=== PATIENT | female | born 1955 | race Two or more races ===

== ENCOUNTER 2018-08-02 00:10 | Emergency (ER) | payer MEDICARE, MEDICAID ==
[~2018-08-02] VITALS: Ht 154.9 cm; Wt 113.4 kg
[~2018-08-02 00:10] MED LIST: ALBU1.25 NEB; ALBU2.5V5 NEB; BENZ-8 PO; BENZ100C PO; GUAI600T47 PO; LEVO500T8 PO; LORA10TA3 PO; METH4TAB2 PO; MOME13HF2 IH; PRED-220 PO; PROAIR HFA8.5 GM IH; SIME125C PO; VENTOLIN; [UNRECOGNIZED DRUG - REMARK] PO; symbicort
[2018-08-02] MEDS ORDERED: ALBUTEROL SULFATE 2.5 MG/3 ML NEBU. ONE (00:27)
[2018-08-02 00:36] LABS: BASO # 0.1 x10^3/uL (0.0-0.2); BASO % 1 % (0-3); EOS # 0.5 x10^3/uL (0.0-0.7); EOS % 7 % (0-3); HEMATOCRIT 44.4 % (36.0-47.0); HEMOGLOBIN 15.1 g/dL (12.0-15.5); LYMPH # 2.8 x10^3/uL (1.0-4.8); LYMPH % 38 % (24-48); MEAN CORPUSCULAR HEMOGLOBIN 31 pg (25-35); MEAN CORPUSCULAR HGB CONC 34 g/dL (31-37); MEAN CORPUSCULAR VOLUME 91 fL (79-100); MONO # 0.5 x10^3/uL (0.0-1.1); MONO % 6 % (0-9); NEUT # 3.5 x10^3uL (1.8-7.7); NEUT % 47 % (31-73); PLATELET COUNT 204 x10^3/uL (140-400); RED BLOOD COUNT 4.86 x10^6/uL (3.50-5.40); RED CELL DISTRIBUTION WIDTH 14.1 % (11.5-14.5); WHITE BLOOD COUNT 7.3 x10^3/uL (4.0-11.0)
[2018-08-02 00:44] LABS: CALCIUM 9.1 mg/dL (8.5-10.1); CREATININE 0.8 mg/dL (0.6-1.0); GFR 72.4; POTASSIUM 3.7 mmol/L (3.5-5.1)
[2018-08-02 00:51] LABS: ALBUMIN 4.1 g/dL (3.4-5.0); ALBUMIN/GLOBULIN RATIO 1.3 (1.0-1.7); TOTAL BILIRUBIN 0.4 mg/dL (0.2-1.0); TOTAL PROTEIN 7.2 g/dL (6.4-8.2)
[2018-08-02] MEDS ORDERED: ONDANSETRON PF 4 MG/2 ML VIAL. IV ONE (01:00)
[2018-08-02] MEDS ORDERED: ALBUTEROL SULFATE 2.5 MG/3 ML NEBU. CONT NEB ONE (01:00)
[2018-08-02] MEDS ORDERED: MORPHINE SULFATE 4 MG/ML VIAL. IV ONE (01:00)
[2018-08-02] MEDS ORDERED: methylPREDNISolone SOD SUCC PF 125 MG/2 ML VIAL. IV ONE (01:00)
[2018-08-02] MEDS ORDERED: IPRATROPIUM BROMIDE 0.5 MG/2.5 ML NEBU. NEB ONE (01:00)
--- NOTE | 2018-08-02 01:13 | PHYS DOC ---
Past Medical History Past Medical History: Asthma, COPD, Other Additional Past Medical Histor: THYROID STORM,GRAVES DISEASE TX'D W/RADIATION Past Surgical History: Other Additional Past Surgical Histo: MINISCUS TEAR Alcohol Use: None Drug Use: None Adult General Chief Complaint Chief Complaint: ASTHMA HPI HPI Patient is a 63-year-old female who presents with complaint of shortness of breath and wheezing that started around 6 PM today. Patient states that the last few days she has had symptoms of upper respiratory infection with productive cough. She states that tonight the symptoms had just gotten a lot worse and she states that she took a breathing treatment a while back but states that it did not do very much to help her symptoms. She states that symptoms are worsened with minimal exertion. She denies any chest pain. She does indicate that she has felt like she might have been running a fever over the last couple of days and has had some chills. Review of Systems Review of Systems Constitutional: Positive subjective fever and chills [] Respiratory: Positive cough, wheezing and shortness of breath [] Cardiovascular: No additional information not addressed in HPI [] Musculoskeletal: Positive back pain[] Integument: Denies rash or skin lesions [] All other systems were reviewed and found to be within normal limits, except as documented in this note. Current Medications Current Medications Current Medications Medications (Trade) Dose Ordered Sig/Sly Start Time Stop Time Status Last Admin Dose Admin Albuterol Sulfate (Ventolin Neb Soln) 2.5 mg STK-MED ONCE 08/02/18 00:27 08/02/18 00:28 DC Albuterol/ Ipratropium (Duoneb) 3 ml 1X ONCE 08/02/18 03:15 08/02/18 03:16 Ipratropium [place] (Atrovent) 0.5 mg 1X ONCE 08/02/18 01:00 08/02/18 01:01 DC 08/02/18 00:36 0.5 MG Ketorolac Tromethamine (Toradol 30mg Vial) 30 mg 1X ONCE 08/02/18 03:00 08/02/18 03:01 08/02/18 02:42 30 MG Methylprednisolone Sodium Succinate (SOLU-Medrol 125MG VIAL) 125 mg 1X ONCE 08/02/18 01:00 08/02/18 01:01 DC 08/02/18 00:34 125 MG Morphine Sulfate (Morphine Sulfate) 4 mg 1X ONCE 08/02/18 01:00 08/02/18 01:01 DC 08/02/18 01:02 4 MG Ondansetron HCl (Zofran) 4 mg 1X ONCE 08/02/18 01:00 08/02/18 01:01 DC 08/02/18 01:03 4 MG Orphenadrine Citrate (Norflex) 60 mg 1X ONCE 08/02/18 03:00 08/02/18 03:01 08/02/18 02:42 60 MG Allergies Allergies Allergies Coded Allergies Type Severity Reaction Last Updated Verified fluticasone Allergy Severe rash 08/30/15 No salmeterol Allergy Severe rash 08/30/15 No codeine Adverse Reaction Mild N/V 08/30/15 Yes Physical Exam Physical Exam Constitutional: Well developed, well nourished, no acute distress, non-toxic appearance. [] HENT: Normocephalic, atraumatic, bilateral external ears normal, oropharynx moist, no oral exudates, nose normal. [] Eyes: PERRLA, EOMI, conjunctiva normal, no discharge. [] Neck: Normal range of motion, no tenderness, supple, no stridor. [] Cardiovascular:Heart rate regular rhythm [] Lungs & Thorax: Breath sounds are diminished bilaterally with inspiratory and expiratory wheezes noted [] Abdomen: Bowel sounds normal, soft, no tenderness. [] Skin: Warm, dry, no erythema, no rash. [] Extremities: No tenderness, no cyanosis, no clubbing, ROM intact, no edema. [] Neurologic: Alert and oriented X 3, normal motor function, normal sensory function, no focal deficits noted. [] Current Patient Data Vital Signs Vital Signs Date Time Temp Pulse Resp B/P (MAP) Pulse Ox O2 Delivery O2 Flow Rate FiO2 08/02/18 00:35 96 Room Air 08/02/18 00:15 97.9 94 28 132/106 (115) 97.9 Lab Values Laboratory Tests Test 08/02/18 00:23 White Blood Count 7.3 x10^3/uL (4.0-11.0) Red Blood Count 4.86 x10^6/uL (3.50-5.40) Hemoglobin 15.1 g/dL (12.0-15.5) Hematocrit 44.4 % (36.0-47.0) Mean Corpuscular Volume 91 fL (79-100) Mean Corpuscular Hemoglobin 31 pg (25-35) Mean Corpuscular Hemoglobin Concent 34 g/dL (31-37) Red Cell Distribution Width 14.1 % (11.5-14.5) Platelet Count 204 x10^3/uL (140-400) Neutrophils (%) (Auto) 47 % (31-73) Lymphocytes (%) (Auto) 38 % (24-48) Monocytes (%) (Auto) 6 % (0-9) Eosinophils (%) (Auto) 7 % (0-3) H Basophils (%) (Auto) 1 % (0-3) Neutrophils # (Auto) 3.5 x10^3uL (1.8-7.7) Lymphocytes # (Auto) 2.8 x10^3/uL (1.0-4.8) Monocytes # (Auto) 0.5 x10^3/uL (0.0-1.1) Eosinophils # (Auto) 0.5 x10^3/uL (0.0-0.7) Basophils # (Auto) 0.1 x10^3/uL (0.0-0.2) Sodium Level 142 mmol/L (136-145) Potassium Level 3.7 mmol/L (3.5-5.1) Chloride Level 105 mmol/L (98-107) Carbon Dioxide Level 26 mmol/L (21-32) Anion Gap 11 (6-14) Blood Urea Nitrogen 16 mg/dL (7-20) Creatinine 0.8 mg/dL (0.6-1.0) Estimated GFR (Cockcroft-Gault) 72.4 BUN/Creatinine Ratio 20 (6-20) Glucose Level 99 mg/dL (70-99) Calcium Level 9.1 mg/dL (8.5-10.1) Total Bilirubin 0.4 mg/dL (0.2-1.0) Aspartate Amino Transferase (AST) 25 U/L (15-37) Alanine Aminotransferase (ALT) 43 U/L (14-59) Alkaline Phosphatase 151 U/L (46-116) H Total Protein 7.2 g/dL (6.4-8.2) Albumin 4.1 g/dL (3.4-5.0) Albumin/Globulin Ratio 1.3 (1.0-1.7) Laboratory Tests 08/02/18 00:23 Laboratory Tests 08/02/18 00:23 EKG EKG [] Radiology/Procedures Radiology/Procedures [] Course & Med Decision Making Course & Med Decision Making Pertinent Labs and Imaging studies reviewed. (See chart for details) [] Dragon Disclaimer Dragon Disclaimer This electronic medical record was generated, in whole or in part, using a voice recognition dictation system. Departure Departure Impression: Primary Impression: Asthma exacerbation Disposition: HOME, SELF-CARE Condition: STABLE Referrals: UNKNOWN PCP NAME (PCP) Patient Instructions: Asthma, Adult Scripts Methylprednisolone (MEDROL) 4 Mg Tab.ds.pk 1 PKG PO UD, #1 PKG Prov: DARIANA PENA Jr. DO 08/02/18 Azithromycin (ZITHROMAX) 250 Mg Tablet 1 PKG PO UD, #6 TAB Prov: DARIANA PENA Jr. DO 08/02/18 Problem Qualifiers Primary Impression: Asthma exacerbation Asthma severity: unspecified severity Asthma persistence: unspecified Qualified Codes: J45.901 - Unspecified asthma with (acute) exacerbation DARIANA PENA Jr. DO Aug 02, 2018 01:13
[2018-08-02] MEDS ORDERED: ORPHENADRINE CITRATE 60 MG/2 ML VIAL. IV ONE (03:00)
[2018-08-02] MEDS ORDERED: KETOROLAC 30 MG/ML VIAL. IV ONE (03:00)
[2018-08-02] MEDS ORDERED: AZIT250T PO (03:00)
[2018-08-02] MEDS ORDERED: METH4TAB2 PO (03:00)
[2018-08-02] MEDS ORDERED: IPRATRPIUM/ALBUTEROL 0.5/2.5MG 3 ML NEBU. NEB ONE (03:15)
[2018-08-02] MEDS ORDERED: ALBU2.5V5 NEB (03:42)
[2018-08-02 03:45] VITALS: BP 122/62
[2018-08-02] MEDS ORDERED: ORPH100T PO (05:56)
--- NOTE | 2018-08-02 07:46 | RAD ---
Examination: CHEST PA LATERAL History: soa;chest pain Comparison/Correlation: 02/02/2018 AP view of the chest Findings: PA and lateral views of chest were obtained. Heart size and pulmonary vasculature are normal. No infiltrate or pleural effusion. Calcified granulomas are present. No pneumothorax. Bony structures are unremarkable for the patient's age. Impression: No active disease. Electronically signed by: Fred Clark MD (08/02/2018 7:42 AM) [facility]
== END 2018-08-02 04:05 | disposition home or self-care (01) ==
LOC: ER 00:10
DX: J45.901 Unspecified asthma with (acute) exacerbation (principal); J44.9 Chronic obstructive pulmonary disease, unspecified; Z88.5 Allergy status to narcotic agent; Z88.8 Allergy status to other drugs, medicaments and biological substances
CPT/HCPCS: 36415; 71046; 80053; 85025; 94644; 96374; 96375; 99285; J1885; J2270; J2360; J2405; J2930; J7613; J7620; J7644; 94640

== ENCOUNTER 2019-01-06 23:22 | Inpatient (IN) | payer MEDICARE, MEDICAID ==
[~2019-01-06] VITALS: Ht 167.6 cm; Wt 127.7 kg
[~2019-01-06 23:22] MED LIST changes: +ALBU2.5V8 IH; +AZIT250T PO; +ORPH100T PO; -PROAIR HFA8.5 GM IH
[2019-01-06] MEDS ORDERED: IPRATRPIUM/ALBUTEROL 0.5/2.5MG 3 ML NEBU. NEB ONE (23:45)
[2019-01-06] MEDS ORDERED: methylPREDNISolone SOD SUCC PF 125 MG/2 ML VIAL. IV ONE (23:45)
[2019-01-07 00:07] LABS: BASE EXCESS ABG -2 mmol/L (-3-3); HCO3 ABG 22 mmol/L (21-28); PCO2 ABG 35 mmHg (35-46); PO2 ABG 106 mmHg (65-108); SAT O2 ABG 98 % (92-99)
[2019-01-07 00:08] LABS: FIO2 ABG 30
[2019-01-07 00:14] LABS: BASO # 0.1 x10^3/uL (0.0-0.2); BASO % 1 % (0-3); EOS # 0.4 x10^3/uL (0.0-0.7); EOS % 5 % (0-3); HEMATOCRIT 42.4 % (36.0-47.0); HEMOGLOBIN 14.2 g/dL (12.0-15.5); LYMPH # 3.3 x10^3/uL (1.0-4.8); LYMPH % 46 % (24-48); MEAN CORPUSCULAR HEMOGLOBIN 31 pg (25-35); MEAN CORPUSCULAR HGB CONC 33 g/dL (31-37); MEAN CORPUSCULAR VOLUME 93 fL (79-100); MONO # 0.5 x10^3/uL (0.0-1.1); MONO % 7 % (0-9); NEUT # 2.9 x10^3uL (1.8-7.7); NEUT % 41 % (31-73); PLATELET COUNT 189 x10^3/uL (140-400); RED BLOOD COUNT 4.54 x10^6/uL (3.50-5.40); RED CELL DISTRIBUTION WIDTH 13.3 % (11.5-14.5)
[2019-01-07] MEDS ORDERED: ALBUTEROL SULFATE 2.5 MG/3 ML NEBU. CONT NEB ONE (00:15)
--- NOTE | 2019-01-07 00:23 | PHYS DOC ---
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 Patient reports chest tightness and wheezing. She states she was unable to find her albuterol inhaler and [place] and does not have her nebulizer with her. Denies fever, chills, nausea vomiting or sweats. Reports nasal congestion, rhinorrhea, and other allergy laded asthma symptoms. Patient tachypnea, with labored breathing and audible wheezes on ED arrival. O2 saturation is 96%. Patient is able to speak in complete sentences. Eyes history of CAD, valvular heart disease, arrhythmia, congestive heart failure. No history of DVT or PE. She was nonsmoker. Denies other acute symptoms or complaints.[] Review of Systems Review of Systems Review of systems as per history of present illness.] All other systems were reviewed and found to be within normal limits, except as documented in this note. Current Medications Current Medications Current Medications Medications (Trade) Dose Ordered Sig/Sly Start Time Stop Time Status Last Admin Dose Admin Albuterol Sulfate (Ventolin Neb Soln) 10 mg 1X ONCE 01/07/19 00:15 01/07/19 00:16 DC 01/07/19 00:12 10 MG Albuterol/ Ipratropium (Duoneb) 3 ml 1X ONCE 01/06/19 23:45 01/06/19 23:46 DC 01/06/19 23:52 3 ML Methylprednisolone Sodium Succinate (SOLU-Medrol 125MG VIAL) 125 mg 1X ONCE 01/06/19 23:45 01/06/19 23:46 DC Allergies Allergies Allergies Coded Allergies Type Severity Reaction Last Updated Verified fluticasone Allergy Severe rash 08/30/15 No salmeterol Allergy Severe rash 08/30/15 No codeine Adverse Reaction Mild N/V 08/30/15 Yes Physical Exam Physical Exam Constitutional: Well developed, well nourished, no acute distress, non-toxic appearance. [] HENT: Normocephalic, atraumatic, bilateral external ears normal, oropharynx moist, no oral exudates, nose normal. [] Eyes: PERRLA, EOMI, conjunctiva normal, no discharge. [] Neck: Normal range of motion, no tenderness, supple, no stridor. [] Cardiovascular:Heart rate regular rhythm, no murmur, peripheral edema [] Lungs & Thorax: Respirations labored, tachypnea, missed breath sounds bilaterally, audible wheezes, speaks in complete sentences.[] Abdomen: Bowel sounds normal, soft, no tenderness, no masses, no pulsatile masses. [] Skin: Warm, dry, no erythema, no rash. [] Back: No tenderness, no CVA tenderness. [] Extremities: No tenderness, no cyanosis, no clubbing, ROM intact, no edema. [] Neurologic: Alert and oriented X 3, normal motor function, normal sensory function, no focal deficits noted. [] Psychologic: Affect, anxious.. [] Current Patient Data Vital Signs Vital Signs Date Time Temp Pulse Resp B/P (MAP) Pulse Ox O2 Delivery O2 Flow Rate FiO2 01/07/19 00:13 96 Nasal Cannula 2.5 01/06/19 23:30 98.6 129 24 158/73 (101) 98.6 Lab Values Laboratory Tests Test 01/06/19 23:38 O2 Saturation 98 % (92-99) Arterial Blood pH 7.41 (7.35-7.45) Arterial Blood pCO2 at Patient Temp 35 mmHg (35-46) Arterial Blood pO2 at Patient Temp 106 mmHg (65-108) Arterial Blood HCO3 22 mmol/L (21-28) Arterial Blood Base Excess -2 mmol/L (-3-3) FiO2 30 EKG EKG [EKG: Reviewed] Radiology/Procedures Radiology/Procedures [Chest x-ray: No acute cardiopulmonary disease on preliminary ED review] Course & Med Decision Making Course & Med Decision Making Pertinent Labs and Imaging studies reviewed. (See chart for details) Moderate to severe persisten asthma exacerbation., Steroids, hard long breathing treatment given. Will admit to hospitalist service with anticipated pulmonology consult in a.m.] Cherry Disclaimer Dragon Disclaimer This electronic medical record was generated, in whole or in part, using a voice recognition dictation system. Departure Departure Impression: Primary Impression: Asthma exacerbation Disposition: ADMITTED INPATIENT Admitting Physician: Other Condition: IMPROVED (Dr. Luke) Referrals: UNKNOWN PCP NAME (PCP) APRYL GAMBLE DO Jan 07, 2019 00:23
[2019-01-07 00:26] LABS: CALCIUM 9.4 mg/dL (8.5-10.1); CREATININE 0.9 mg/dL (0.6-1.0); GFR 63.2; POTASSIUM 4.1 mmol/L (3.5-5.1)
[2019-01-07] MEDS ORDERED: ALBUTEROL SULFATE 2.5 MG/3 ML NEBU. NEB PRN ×2 (00:30→11:15)
[2019-01-07] MEDS ORDERED: ONDANSETRON PF 4 MG/2 ML VIAL. IV PRN (00:30)
[2019-01-07 00:32] LABS: ALBUMIN 3.6 g/dL (3.4-5.0); ALBUMIN/GLOBULIN RATIO 1.2 (1.0-1.7); TOTAL BILIRUBIN 0.3 mg/dL (0.2-1.0); TOTAL PROTEIN 6.6 g/dL (6.4-8.2)
[2019-01-07 03:56] VITALS: BP 109/65
[2019-01-07] MEDS ORDERED: methylPREDNISolone SOD SUCC PF 125 MG/2 ML VIAL. IV SCH (06:00)
[2019-01-07 07:00] VITALS: BP 116/74
[2019-01-07] MEDS ORDERED: IPRATRPIUM/ALBUTEROL 0.5/2.5MG 3 ML NEBU. NEB SCH (08:00)
--- NOTE | 2019-01-07 08:37 | RAD ---
CHEST AP ONLY Clinical History: SHORT OF AIR. Technique: AP view of the chest was obtained at 01/06/2019 11:38 PM. Comparison: August 02, 2018. Findings: The cardiomediastinal silhouette is normal. The pulmonary vasculature is normal. The lungs and pleural margins are clear. Impression: No evidence of an acute cardiopulmonary process. Electronically signed by: Jordan Rothman III, MD (01/07/2019 8:34 AM) [facility]
[2019-01-07] MEDS ORDERED: ENOXAPARIN 40 MG/0.4 ML SYRINGE. SQ SCH ×2 (09:00→10:00)
--- NOTE | 2019-01-07 09:05 | PDOC ---
Provider Note Provider Note [id number] acute resp fail asthma ae abnl cxr see orders ANJELICA BEAULIEU MD Jan 07, 2019 09:05
[2019-01-07] MEDS ORDERED: PANTOPRAZOLE 40 MG TABLET.DR. PO ONE (09:15)
--- NOTE | 2019-01-07 09:21 | PDOC1 ---
History and Physical Date of Admission Date of Admission DATE: 01/07/19 TIME: 09:20 Identification/Chief Complaint Chief Complaint 63 year old AA female with history of asthma to er presents with shortness of breath, starting earlier today. Patient reports chest tightness and wheezing. states she was unable to find her albuterol inhaler and is currently [place] and does not have her nebulizer with her. Denies fever, chills, nausea vomiting or sweats. Reports nasal congestion, rhinorrhea, and other allergy laded asthma symptoms. Patient noted tachypnea, with labored breathing and audible wheezes on ED arrival. O2 saturation is 96%. Patient is able to speak in complete sentences. denies history of CAD, valvular heart disease, arrhythmia, congestive heart failure. No history of DVT or PE. She was nonsmoker She has history of previous severe asthma exacerbation requiring admission to the hospital, though never to the ICU or requiring BiPAP or intubation. She is a lifetime nonsmoker but states she also has diagnosis of COPD. Her PCP is at [facility].DR JUNIOR PEREZ, PULMONARY MED Past Medical History Past Medical History Past Medical History Past Medical History Past Medical History: Asthma, COPD, Other Additional Past Medical Histor: THYROID STORM,GRAVES DISEASE TX'D W/RADIATION Past Surgical History: Other Additional Past Surgical Histo: MINISCUS TEAR Alcohol Use: None Drug Use: None FAMILY HX OBESITY Pulmonary: Asthma, Bronchitis, COPD Musculoskeletal: Osteoarthritis ENT: Sincusitis, Allergic Rhinitis Endocrine: Other Past Surgical History Past Surgical History: No pertinent history Family History Family History: High Cholestrol Social History Smoke: No ALCOHOL: none Drugs: None Current Problem List Problem List Problems Medical Problems: (1) Asthma exacerbation Status: Acute Current Medications Current Medications Current Medications Albuterol/ Ipratropium (Duoneb) 3 ml 1X ONCE NEB Last administered on at 23:52; Start 01/06/19 at 23:45; Stop 01/06/19 at 23:46; Status DC Methylprednisolone Sodium Succinate (SOLU-Medrol 125MG VIAL) 125 mg 1X ONCE IV Last administered on 01/07/19at 00:21; Start 01/06/19 at 23:45; Stop 01/06/19 at 23:46; Status DC Albuterol Sulfate (Ventolin Neb Soln) 10 mg 1X ONCE CONT NEB Last administered on 01/07/19at 00:12; Start 01/07/19 at 00:15; Stop 01/07/19 at 00:16 ; Status DC Ondansetron HCl (Zofran) 4 mg PRN Q8HRS PRN IV NAUSEA/VOMITING; Start 01/07/19 at 00:30; Stop 01/08/19 at 00:29 Albuterol/ Ipratropium (Duoneb) 3 ml RTQID NEB Last administered on 01/07/19at 06:29; Start 01/07/19 at 08:00; Stop 01/08/19 at 07:59 Methylprednisolone Sodium Succinate (SOLU-Medrol 125MG VIAL) 62.5 mg Q6HRS IV Last administered on 01/07/19at 06:06; Start 01/07/19 at 06:00; Stop 01/07/19 at 08:58; Status DC Albuterol Sulfate (Ventolin Neb Soln) 2.5 mg PRN Q4HRS PRN NEB SOA; Start 01/07 at 00:30 Methylprednisolone Sodium Succinate (SOLU-Medrol 40MG VIAL) 40 mg Q8HRS IV ; Start 01/07/19 at 14:00 Pantoprazole Sodium (Protonix) 40 mg DAILYAC PO ; Start 01/08/19 at 07:30 Pantoprazole Sodium (Protonix) 40 mg 1X ONCE PO ; Start 01/07/19 at 09:15; Stop 01/07/19 at 09:16; Status DC Enoxaparin Sodium (Lovenox 40mg Syringe) 40 mg Q24H SQ ; Start 01/07/19 at 09:00 ; Status Cancel Enoxaparin Sodium (Lovenox 40mg Syringe) 40 mg BID SQ ; Start 01/07/19 at 09:00 Active Scripts Active Orphenadrine Citrate 100 Mg Tablet.er 1 Tab PO BID PRN Albuterol Sulfate Neb Soln (Albuterol Sulfate) 2.5 Mg/3 Ml Vial.neb 1 Vial NEB PRN Q4HRS PRN Medrol (Methylprednisolone) 4 Mg Tab.ds.pk 1 Pkg PO UD Zithromax (Azithromycin) 250 Mg Tablet 1 Pkg PO UD Medrol (Methylprednisolone) 4 Mg Tab.ds.pk 1 Pkg PO UD Reported [unknown steroid ] PO BID Gas-X (Simethicone) 125 Mg Capsule 125 Mg PO PRN BFRMEALHC PRN Loratadine 10 Mg Tablet 1 Tab PO DAILY Benzonatate 100 Mg Capsule 100 Mg PO TID PRN [Ventolin] Dulera 100 Mcg/5 Mcg Inhaler (Mometasone/Formoterol) 13 Gm Hfa.aer.ad 2 Puff IH BID Proair Hfa Inhaler (Albuterol Sulfate) 8.5 Gm Hfa.aer.ad 2 Puff IH PRN Q2HR PRN Albuterol Sulfate Neb Soln (Albuterol Sulfate) 1.25 Mg/3 Ml Vial.neb 1 Vial NEB Q4HRS Allergies Allergies: Coded Allergies: fluticasone (Verified Allergy, Severe, rash, 01/07/19) salmeterol (Verified Allergy, Severe, rash, 01/07/19) codeine (Verified Adverse Reaction, Mild, N/V, 08/30/15) ROS Review of System Review of Systems Review of Systems Constitutional: Denies fever or chills. [] Eyes: Denies change in visual acuity. [] HENT: Denies nasal congestion or sore throat. [] Respiratory: Reports shortness of breath. [] Cardiovascular: Denies chest pain or edema. [] GI: Denies abdominal pain, nausea, vomiting, bloody stools or diarrhea. [] : Denies dysuria. [] Musculoskeletal: Denies back pain or joint pain. [] Integument: Denies rash. [] Neurologic: Denies headache, focal weakness or sensory changes. [] Psychiatric: Denies depression or anxiety. [] 14 pt ros otherwise neg HEENT: YES: Sneezing ALLERGY AND IMMUNOLOGY: YES: Nasal Congestion, Post Nasal Drip Hematological and Lymphatic: No: Bleeding Problems, Blood Clots, Blood Transfusions, Brusing, Night Sweats, Pallor, Swollen Lymph Nodes, Other Gastrointestinal: No Nausea, No Vomiting, No Abdominal Pain, No Diarrhea, No Constipation, No Melena, No Hematochezia, No Other Neurological: No Behavorial Changes, No Bowel/Bladder ControlChng, No Confusion , No Dizziness, No Gait Disturbance, No Headaches, No Impaired Coord/balance, No Memory Loss, No Numbness/Tingling, No Seizures, No Speech Problems, No Tremors, No Visual Changes, No Weakness, No Other Physical Exam Physical Exam Physical Exam Physical Exam Constitutional: Well developed, well nourished, no acute distress, non-toxic appearance. [] HENT: Normocephalic, atraumatic, bilateral external ears normal, oropharynx moist, no oral exudates, nose normal. [] Eyes: PERRLA, EOMI, conjunctiva normal, no discharge. [] Neck: Normal range of motion, no tenderness, supple, no stridor. [] Cardiovascular:Heart rate regular rhythm, no murmur, peripheral edema [] Lungs & Thorax: Respirations mildly labored, tachypnea, missed breath sounds bilaterally, audible wheezes, speaks in complete sentences.[] Abdomen: Bowel sounds normal, soft, no tenderness, no masses, no pulsatile masses. [] Skin: Warm, dry, no erythema, no rash. [] Back: No tenderness, no CVA tenderness. [] Extremities: No tenderness, no cyanosis, no clubbing, ROM intact, no edema. [] Neurologic: Alert and oriented X 3, normal motor function, normal sensory function, no focal deficits noted. [] Psychologic: Affect, anxious.. [] General: Cooperative, mild distress Heart: S1S2 Abdomen: Normal bowel sounds, Soft Vitals Vitals Vital Signs Date Time Temp Pulse Resp B/P (MAP) Pulse Ox O2 Delivery O2 Flow Rate FiO2 01/07/19 07:00 98.2 87 16 116/74 (88) 97 Nasal Cannula 2.0 98.2 Labs Labs Laboratory Tests Test 01/06/19 23:38 01/07/19 00:05 O2 Saturation 98 % (92-99) Arterial Blood pH 7.41 (7.35-7.45) Arterial Blood pCO2 at Patient Temp 35 mmHg (35-46) Arterial Blood pO2 at Patient Temp 106 mmHg (65-108) Arterial Blood HCO3 22 mmol/L (21-28) Arterial Blood Base Excess -2 mmol/L (-3-3) FiO2 30 White Blood Count 7.0 x10^3/uL (4.0-11.0) Red Blood Count 4.54 x10^6/uL (3.50-5.40) Hemoglobin 14.2 g/dL (12.0-15.5) Hematocrit 42.4 % (36.0-47.0) Mean Corpuscular Volume 93 fL (79-100) Mean Corpuscular Hemoglobin 31 pg (25-35) Mean Corpuscular Hemoglobin Concent 33 g/dL (31-37) Red Cell Distribution Width 13.3 % (11.5-14.5) Platelet Count 189 x10^3/uL (140-400) Neutrophils (%) (Auto) 41 % (31-73) Lymphocytes (%) (Auto) 46 % (24-48) Monocytes (%) (Auto) 7 % (0-9) Eosinophils (%) (Auto) 5 % (0-3) Basophils (%) (Auto) 1 % (0-3) Neutrophils # (Auto) 2.9 x10^3uL (1.8-7.7) Lymphocytes # (Auto) 3.3 x10^3/uL (1.0-4.8) Monocytes # (Auto) 0.5 x10^3/uL (0.0-1.1) Eosinophils # (Auto) 0.4 x10^3/uL (0.0-0.7) Basophils # (Auto) 0.1 x10^3/uL (0.0-0.2) Sodium Level 140 mmol/L (136-145) Potassium Level 4.1 mmol/L (3.5-5.1) Chloride Level 106 mmol/L (98-107) Carbon Dioxide Level 24 mmol/L (21-32) Anion Gap 10 (6-14) Blood Urea Nitrogen 16 mg/dL (7-20) Creatinine 0.9 mg/dL (0.6-1.0) Estimated GFR (Cockcroft-Gault) 63.2 BUN/Creatinine Ratio 18 (6-20) Glucose Level 108 mg/dL (70-99) Calcium Level 9.4 mg/dL (8.5-10.1) Total Bilirubin 0.3 mg/dL (0.2-1.0) Aspartate Amino Transf (AST/SGOT) 32 U/L (15-37) Alanine Aminotransferase (ALT/SGPT) 49 U/L (14-59) Alkaline Phosphatase 139 U/L (46-116) Troponin I Quantitative < 0.017 ng/mL (0.000-0.055) UG-Dtg-V-Type Natriuretic Peptide 40 pg/mL (0-124) Total Protein 6.6 g/dL (6.4-8.2) Albumin 3.6 g/dL (3.4-5.0) Albumin/Globulin Ratio 1.2 (1.0-1.7) Laboratory Tests Test 01/06/19 23:38 01/07/19 00:05 O2 Saturation 98 % (92-99) Arterial Blood pH 7.41 (7.35-7.45) Arterial Blood pCO2 at Patient Temp 35 mmHg (35-46) Arterial Blood pO2 at Patient Temp 106 mmHg (65-108) Arterial Blood HCO3 22 mmol/L (21-28) Arterial Blood Base Excess -2 mmol/L (-3-3) FiO2 30 White Blood Count 7.0 x10^3/uL (4.0-11.0) Red Blood Count 4.54 x10^6/uL (3.50-5.40) Hemoglobin 14.2 g/dL (12.0-15.5) Hematocrit 42.4 % (36.0-47.0) Mean Corpuscular Volume 93 fL (79-100) Mean Corpuscular Hemoglobin 31 pg (25-35) Mean Corpuscular Hemoglobin Concent 33 g/dL (31-37) Red Cell Distribution Width 13.3 % (11.5-14.5) Platelet Count 189 x10^3/uL (140-400) Neutrophils (%) (Auto) 41 % (31-73) Lymphocytes (%) (Auto) 46 % (24-48) Monocytes (%) (Auto) 7 % (0-9) Eosinophils (%) (Auto) 5 % (0-3) Basophils (%) (Auto) 1 % (0-3) Neutrophils # (Auto) 2.9 x10^3uL (1.8-7.7) Lymphocytes # (Auto) 3.3 x10^3/uL (1.0-4.8) Monocytes # (Auto) 0.5 x10^3/uL (0.0-1.1) Eosinophils # (Auto) 0.4 x10^3/uL (0.0-0.7) Basophils # (Auto) 0.1 x10^3/uL (0.0-0.2) Sodium Level 140 mmol/L (136-145) Potassium Level 4.1 mmol/L (3.5-5.1) Chloride Level 106 mmol/L (98-107) Carbon Dioxide Level 24 mmol/L (21-32) Anion Gap 10 (6-14) Blood Urea Nitrogen 16 mg/dL (7-20) Creatinine 0.9 mg/dL (0.6-1.0) Estimated GFR (Cockcroft-Gault) 63.2 BUN/Creatinine Ratio 18 (6-20) Glucose Level 108 mg/dL (70-99) Calcium Level 9.4 mg/dL (8.5-10.1) Total Bilirubin 0.3 mg/dL (0.2-1.0) Aspartate Amino Transf (AST/SGOT) 32 U/L (15-37) Alanine Aminotransferase (ALT/SGPT) 49 U/L (14-59) Alkaline Phosphatase 139 U/L (46-116) Troponin I Quantitative < 0.017 ng/mL (0.000-0.055) PI-Frz-I-Type Natriuretic Peptide 40 pg/mL (0-124) Total Protein 6.6 g/dL (6.4-8.2) Albumin 3.6 g/dL (3.4-5.0) Albumin/Globulin Ratio 1.2 (1.0-1.7) Images Images CHEST AP ONLY Clinical History: SHORT OF AIR. Technique: AP view of the chest was obtained at 01/06/2019 11:38 PM. Comparison: August 02, 2018. Findings: The cardiomediastinal silhouette is normal. The pulmonary vasculature is normal. The lungs and pleural margins are clear. Impression: No evidence of an acute cardiopulmonary process. Electronically signed by: Kehinde Rothman III, MD (01/07/2019 8:34 AM) [facility] DICTATED and SIGNED BY: KEHINDE ROTHMAN III, MD DATE: 01/07/19 0834 VTE Prophylaxis Ordered VTE Prophylaxis Devices: Yes VTE Pharmacological Prophylaxi: Yes Assessment/Plan Assessment/Plan IMPRESSION 1. ACUTE RESPIRATORY FAILURE 2. Exacerbation of severe persistent asthma 3. morbid obesity, EXTREME 4. AYAKA 5. OBESITY, HYPOVENTILATION SYNDROME 6. SEASONAL ALLERGY SYMPTOMS plan nebs qid o2 support iv steroid taper dvt prophylaxis SINGULAIR 10 MG PO Q HS CLARITIN 10MG PO DAILY Discussed need for weight loss GI PROPHYLAXIS AT RISK FOR SUDDEN DUE TO SEVERE PERSISTENT ASTHMA ELSA TEMPLETON MD Jan 07, 2019 09:21
--- NOTE | 2019-01-07 09:55 | CONS ---
DATE OF CONSULTATION: 01/07/2019 I was asked to see this 63-year-old for acute respiratory failure, acute exacerbation of asthma. HISTORY OF PRESENT ILLNESS: She is a lifelong nonsmoker. She does have asthma, is under care of Dr. Gamboa in [facility]. She started to have increased shortness of breath, cough and wheezing yesterday. She did have chest tightness and some gastroesophageal reflux symptoms. She presented to the Emergency Room. Solu-Medrol and nebulizer treatment was given. She is on oxygen. Her shortness of breath is better. She does have cough with small amount of clear sputum. She denies chest pain or chest tightness now. She has gastroesophageal reflux symptoms. PAST MEDICAL HISTORY: 1. Asthma. 2. Graves' disease. 3. Status post radiation. 4. Obstructive sleep apnea-hypopnea syndrome. ALLERGIES: CODEINE, FLUTICASONE, SALMETEROL. MEDICATIONS: Currently, she is on Solu-Medrol 62.5 mg every 6, DuoNeb. SOCIAL HISTORY: Lifelong nonsmoker. FAMILY HISTORY: Her aunt has asthma. REVIEW OF SYSTEMS: As mentioned as above. She has obstructive sleep apnea-hypopnea syndrome. She is not able to tolerate her CPAP. Other systems otherwise negative. PHYSICAL EXAMINATION: GENERAL: This is an obese lady. VITAL SIGNS: Her O2 saturation on 2 liters of oxygen is 95%, respiratory rate 16, heart rate 87: Blood pressure 116/74, temperature 98.2. HEENT: Normocephalic, atraumatic. Pupils equal, round, reactive to light. There is shallow oropharynx. Nose is clear. NECK: There is no JVD, lymphadenopathy or thyromegaly. CARDIOVASCULAR: Regular rate and rhythm. PMI is nondisplaced. CHEST: On inspection, end-expiratory wheezing bilaterally. Good air movement. The percussion is within normal limits. ABDOMEN: Soft and obese. Bowel sounds are good. There is no mass. EXTREMITIES: There is no edema. LYMPHATICS: There is no lymphadenopathy. NEUROLOGIC: Alert and oriented. SKIN: Warm. LABORATORY DATA: I reviewed the following lab data: Sodium 140, potassium 4.1, chloride 106, CO2 of 24, glucose 108, BUN 16, creatinine 0.9. Troponin less than 0.01. BNP 40. ABG yesterday, pH 7.41, pCO2 of 35, pO2 of 106 on 30% FiO2. WBC 7, hemoglobin 14.2, platelets 189. Chest x-ray shows ?left hilar density/prominence, cannot rule out mass. IMPRESSION: 1. Acute respiratory failure secondary to acute exacerbation of asthma versus others. 2. Abnormal chest x-ray as mentioned as above. 3. Acute exacerbation of asthma. 4. Obstructive sleep apnea-hypopnea syndrome. 5. Obesity. 6. History of Graves' disease. 7. Gastroesophageal reflux disease. PLAN AND RECOMMENDATIONS: 1. Titrate FiO2 to keep O2 saturation 92%. 2. Continue bronchodilator. 3. Change Solu-Medrol to 40 mg IV every 8. 4. I will do a CT of the chest. 5. Lovenox for DVT prophylaxis. 6. Protonix for stress ulcer prophylaxis and gastroesophageal reflux disease. 7. Lose weight and exercise, when she is over her acute exacerbation of asthma. 8. I have discussed obstructive sleep apnea-hypopnea syndrome, the importance of treatment, if untreated, increased cardiovascular and [employer] morbidity or mortality. I have advised her to use CPAP during sleep. Thank you very much for allowing me to participate in care of this very nice lady. The findings and recommendations were discussed with the patient. She understood and agreed to proceed with the plan. I have answered all of her questions. ANJELICA BEAULIEU M.D. GUY MCKEON/quinn JOB#: [id number] / [id number] JULY
[2019-01-07] MEDS: ENOXAPARIN 40 MG/0.4 ML SYRINGE. SQ SCH ×2 (10:34→20:58)
[2019-01-07 11:00] VITALS: BP 132/56
[2019-01-07] MEDS ORDERED: SIMETHICONE 80 MG TAB.CHEW PO PRN (11:30)
--- NOTE | 2019-01-07 11:39 | RAD ---
CT of the chest without contrast: Clinical History: Left hilar prominence. Axial helical images of the chest were obtained without contrast. COMPARISON: February 03, 2018 There are a few peripheral linear opacities which are likely discoid atelectasis or scar. There is multiple small mediastinal lymph nodes however this appears significant improved. Impression: 1. Minimal mediastinal lymphadenopathy is likely reactive and appears significantly improved. 2. No acute findings. PQRS Compliance Statement: One or more of the following individualized dose reduction techniques were utilized for this examination: 1. Automated exposure control 2. Adjustment of the mA and/or kV according to patient size 3. Use of iterative reconstruction technique Electronically signed by: Jordan Rothman III, MD (01/07/2019 11:36 AM) [id number]
[2019-01-07] MEDS: BUDESONIDE 0.5 MG/2 ML NEBU. NEB SCH ×2 (11:50→20:18)
[2019-01-07] MEDS: ALBUTEROL SULFATE 2.5 MG/3 ML NEBU. NEB SCH ×3 (12:00→20:21)
[2019-01-07] MEDS: CETIRIZINE HCL 10 MG TABLET. PO SCH (13:35)
[2019-01-07] MEDS: methylPREDNISolone SOD SUCC PF 40 MG/ML VIAL. IV SCH ×2 (13:36→20:59)
[2019-01-07 15:00] VITALS: BP 109/54
[2019-01-07] MEDS: BENZONATATE 100 MG CAPSULE. PO PRN ×2 (15:38→23:35)
[2019-01-07] MEDS: SIMETHICONE 80 MG TAB.CHEW PO PRN ×2 (15:38→23:35)
[2019-01-07 19:40] VITALS: BP 134/63
[2019-01-07] MEDS ORDERED: MONTELUKAST SODIUM 10 MG TABLET. PO SCH (21:00)
[2019-01-07] MEDS ORDERED: ACETAMINOPHEN 325 MG TABLET. PO PRN (23:00)
[2019-01-07 23:08] VITALS: BP_SYST 130; BP_SYST 133; BP_DIAS 53; BP_DIAS 64
[2019-01-08 03:59] VITALS: BP 104/41
[2019-01-08] MEDS: ALBUTEROL SULFATE 2.5 MG/3 ML NEBU. NEB SCH ×5 (04:00→15:58)
[2019-01-08] MEDS: methylPREDNISolone SOD SUCC PF 40 MG/ML VIAL. IV SCH ×2 (06:07→13:33)
[2019-01-08 06:55] VITALS: BP 110/54
[2019-01-08] MEDS ORDERED: PANTOPRAZOLE 40 MG TABLET.DR. PO SCH (07:30)
[2019-01-08] MEDS: BUDESONIDE 0.5 MG/2 ML NEBU. NEB SCH (07:33)
[2019-01-08 08:07] LABS: BASO % 0 % (0-3); EOS % 0 % (0-3); HEMOGLOBIN 13.8 g/dL (12.0-15.5); LYMPH # 1.3 x10^3/uL (1.0-4.8); LYMPH % 12 % (24-48); MEAN CORPUSCULAR HEMOGLOBIN 31 pg (25-35); MEAN CORPUSCULAR HGB CONC 33 g/dL (31-37); MEAN CORPUSCULAR VOLUME 95 fL (79-100); MONO # 0.5 x10^3/uL (0.0-1.1); MONO % 4 % (0-9); NEUT # 9.4 x10^3uL (1.8-7.7); NEUT % 84 % (31-73); PLATELET COUNT 185 x10^3/uL (140-400); RED BLOOD COUNT 4.42 x10^6/uL (3.50-5.40); RED CELL DISTRIBUTION WIDTH 13.8 % (11.5-14.5); WHITE BLOOD COUNT 11.1 x10^3/uL (4.0-11.0)
[2019-01-08 08:38] LABS: ALBUMIN 3.4 g/dL (3.4-5.0); CREATININE 0.8 mg/dL (0.6-1.0); GFR 72.4; POTASSIUM 4.3 mmol/L (3.5-5.1); TOTAL BILIRUBIN 0.3 mg/dL (0.2-1.0); TOTAL PROTEIN 6.7 g/dL (6.4-8.2)
[2019-01-08] MEDS: CETIRIZINE HCL 10 MG TABLET. PO SCH (08:59)
[2019-01-08] MEDS: ENOXAPARIN 40 MG/0.4 ML SYRINGE. SQ SCH (09:00)
[2019-01-08 10:34] VITALS: BP 100/48
[2019-01-08] MEDS: SIMETHICONE 80 MG TAB.CHEW PO PRN (13:41)
[2019-01-08] MEDS ORDERED: ALBU2.5V8 IH (13:55)
[2019-01-08] MEDS ORDERED: AZIT250T PO (13:55)
[2019-01-08] MEDS ORDERED: PRED-220 PO (13:55)
[2019-01-08 14:17] VITALS: BP 120/57
--- NOTE | 2019-01-08 14:33 | PDOC ---
PULMONARY PROGRESS NOTES Subjective Pt. is resting comfortably on 2 liters N/C. She reports she feels well, and that her breathing is much better. She reports a non-productive cough, and SOA with exertion. She reports she doesn't want to go home with oxygen and is declining to do a 6 min walk to see if she qualifies for home oxygen. She reports she has not been compliant with her home CPAP but follows with at [facility] and plans to follow up with him to adjust her settings as she realizes the importance of the CPAP and treating her AYAKA. She denies chest pain, abdominal pain, or headache. Vitals Laboratory Tests Test 01/07/19 20:38 01/08/19 07:09 01/08/19 07:25 01/08/19 11:35 Glucose (Fingerstick) 206 mg/dL 125 mg/dL 186 mg/dL White Blood Count 11.1 x10^3/uL Red Blood Count 4.42 x10^6/uL Hemoglobin 13.8 g/dL Hematocrit 42.0 % Mean Corpuscular Volume 95 fL Mean Corpuscular Hemoglobin 31 pg Mean Corpuscular Hemoglobin Concent 33 g/dL Red Cell Distribution Width 13.8 % Platelet Count 185 x10^3/uL Neutrophils (%) (Auto) 84 % Lymphocytes (%) (Auto) 12 % Monocytes (%) (Auto) 4 % Eosinophils (%) (Auto) 0 % Basophils (%) (Auto) 0 % Neutrophils # (Auto) 9.4 x10^3uL Lymphocytes # (Auto) 1.3 x10^3/uL Monocytes # (Auto) 0.5 x10^3/uL Eosinophils # (Auto) 0.0 x10^3/uL Basophils # (Auto) 0.0 x10^3/uL Sodium Level 142 mmol/L Potassium Level 4.3 mmol/L Chloride Level 108 mmol/L Carbon Dioxide Level 25 mmol/L Anion Gap 9 Blood Urea Nitrogen 14 mg/dL Creatinine 0.8 mg/dL Estimated GFR (Cockcroft-Gault) 72.4 BUN/Creatinine Ratio 18 Glucose Level 142 mg/dL Calcium Level 9.0 mg/dL Total Bilirubin 0.3 mg/dL Aspartate Amino Transf (AST/SGOT) 15 U/L Alanine Aminotransferase (ALT/SGPT) 38 U/L Alkaline Phosphatase 109 U/L Total Protein 6.7 g/dL Albumin 3.4 g/dL Albumin/Globulin Ratio 1.0 Current Medications Medications (Trade) Dose Ordered Sig/Sly Route PRN Reason Start Time Stop Time Status Last Admin Dose Admin Albuterol/ Ipratropium (Duoneb) 3 ml 1X ONCE NEB 01/06/19 23:45 01/06/19 23:46 DC 01/06/19 23:52 Methylprednisolone Sodium Succinate (SOLU-Medrol 125MG VIAL) 125 mg 1X ONCE IV 01/06/19 23:45 01/06/19 23:46 DC 01/07/19 00:21 Albuterol Sulfate (Ventolin Neb Soln) 10 mg 1X ONCE CONT NEB 01/07/19 00:15 01/07/19 00:16 DC 01/07/19 00:12 Ondansetron HCl (Zofran) 4 mg PRN Q8HRS PRN IV NAUSEA/VOMITING 01/07/19 00:30 01/08/19 00:29 DC Albuterol/ Ipratropium (Duoneb) 3 ml RTQID NEB 01/07/19 08:00 01/07/19 11:20 DC 01/07/19 06:29 Methylprednisolone Sodium Succinate (SOLU-Medrol 125MG VIAL) 62.5 mg Q6HRS IV 01/07/19 06:00 01/07/19 08:58 DC 01/07/19 06:06 Albuterol Sulfate (Ventolin Neb Soln) 2.5 mg PRN Q4HRS PRN NEB SOA 01/07/19 00:30 01/07/19 11:18 DC Methylprednisolone Sodium Succinate (SOLU-Medrol 40MG VIAL) 40 mg Q8HRS IV 01/07/19 14:00 01/08/19 13:33 Pantoprazole Sodium (Protonix) 40 mg DAILYAC PO 01/08/19 07:30 01/08/19 07:44 Pantoprazole Sodium (Protonix) 40 mg 1X ONCE PO 01/07/19 09:15 01/07/19 09:16 DC 01/07/19 10:33 Enoxaparin Sodium (Lovenox 40mg Syringe) 40 mg Q24H SQ 01/07/19 09:00 Cancel Enoxaparin Sodium (Lovenox 40mg Syringe) 40 mg BID SQ 01/07/19 09:00 01/08/19 09:00 Enoxaparin Sodium (Lovenox 40mg Syringe) 40 mg Q24H SQ 01/07/19 10:00 UNV Albuterol Sulfate (Ventolin Neb Soln) 2.5 mg PRN Q4HRS PRN NEB WHEEZING 01/07/19 11:15 Albuterol Sulfate (Ventolin Neb Soln) 2.5 mg Q4HRS NEB 01/07/19 12:00 01/08/19 11:44 Benzonatate (Tessalon Perle) 100 mg PRN TID PRN PO COUGH 01/07/19 11:18 01/07/19 23:35 Cetirizine HCl (ZyrTEC) 10 mg DAILY PO 01/07/19 12:00 01/08/19 08:59 Budesonide (Pulmicort) 0.5 mg RTBID NEB 01/07/19 12:00 01/08/19 07:33 Simethicone (Gas-X) 80 mg PRN AFTMEALHC PRN PO GAS / BLOATING 01/07/19 11:30 01/07/19 14:23 DC Montelukast Sodium (Singulair) 10 mg QHS PO 01/07/19 21:00 01/07/19 20:58 Simethicone (Gas-X) 80 mg PRN Q3HRS PRN PO GAS / BLOATING 01/07/19 14:30 01/08/19 13:41 Acetaminophen (Tylenol) 650 mg PRN Q6HRS PRN PO PAIN 01/07/19 23:00 01/07/19 23:35 Vital Signs Date Time Temp Pulse Resp B/P (MAP) Pulse Ox O2 Delivery O2 Flow Rate FiO2 01/08/19 14:17 97.9 77 18 120/57 (78) 96 Nasal Cannula 2.0 97.9 Comments 12 point ROS was reviewed with pt. is negative except for positives in HPI. General: Alert, Oriented X4, No acute distress HEENT: Neck ROM Lungs: Clear, Wheezing (ex. in RUL) Cardiovascular: S1, S2 Abdomen: Soft, Non-tender Neuro Exam: Alert, Oriented, Normal Speech Extremities: No Edema Labs Laboratory Tests Test 01/07/19 20:38 01/08/19 07:09 01/08/19 07:25 01/08/19 11:35 Glucose (Fingerstick) 206 mg/dL 125 mg/dL 186 mg/dL White Blood Count 11.1 x10^3/uL Red Blood Count 4.42 x10^6/uL Hemoglobin 13.8 g/dL Hematocrit 42.0 % Mean Corpuscular Volume 95 fL Mean Corpuscular Hemoglobin 31 pg Mean Corpuscular Hemoglobin Concent 33 g/dL Red Cell Distribution Width 13.8 % Platelet Count 185 x10^3/uL Neutrophils (%) (Auto) 84 % Lymphocytes (%) (Auto) 12 % Monocytes (%) (Auto) 4 % Eosinophils (%) (Auto) 0 % Basophils (%) (Auto) 0 % Neutrophils # (Auto) 9.4 x10^3uL Lymphocytes # (Auto) 1.3 x10^3/uL Monocytes # (Auto) 0.5 x10^3/uL Eosinophils # (Auto) 0.0 x10^3/uL Basophils # (Auto) 0.0 x10^3/uL Sodium Level 142 mmol/L Potassium Level 4.3 mmol/L Chloride Level 108 mmol/L Carbon Dioxide Level 25 mmol/L Anion Gap 9 Blood Urea Nitrogen 14 mg/dL Creatinine 0.8 mg/dL Estimated GFR (Cockcroft-Gault) 72.4 BUN/Creatinine Ratio 18 Glucose Level 142 mg/dL Calcium Level 9.0 mg/dL Total Bilirubin 0.3 mg/dL Aspartate Amino Transf (AST/SGOT) 15 U/L Alanine Aminotransferase (ALT/SGPT) 38 U/L Alkaline Phosphatase 109 U/L Total Protein 6.7 g/dL Albumin 3.4 g/dL Albumin/Globulin Ratio 1.0 Current Medications Medications (Trade) Dose Ordered Sig/Sly Route PRN Reason Start Time Stop Time Status Last Admin Dose Admin Albuterol/ Ipratropium (Duoneb) 3 ml 1X ONCE NEB 01/06/19 23:45 01/06/19 23:46 DC 01/06/19 23:52 Methylprednisolone Sodium Succinate (SOLU-Medrol 125MG VIAL) 125 mg 1X ONCE IV 01/06/19 23:45 01/06/19 23:46 DC 01/07/19 00:21 Albuterol Sulfate (Ventolin Neb Soln) 10 mg 1X ONCE CONT NEB 01/07/19 00:15 01/07/19 00:16 DC 01/07/19 00:12 Ondansetron HCl (Zofran) 4 mg PRN Q8HRS PRN IV NAUSEA/VOMITING 01/07/19 00:30 01/08/19 00:29 DC Albuterol/ Ipratropium (Duoneb) 3 ml RTQID NEB 01/07/19 08:00 01/07/19 11:20 DC 01/07/19 06:29 Methylprednisolone Sodium Succinate (SOLU-Medrol 125MG VIAL) 62.5 mg Q6HRS IV 01/07/19 06:00 01/07/19 08:58 DC 01/07/19 06:06 Albuterol Sulfate (Ventolin Neb Soln) 2.5 mg PRN Q4HRS PRN NEB SOA 01/07/19 00:30 01/07/19 11:18 DC Methylprednisolone Sodium Succinate (SOLU-Medrol 40MG VIAL) 40 mg Q8HRS IV 01/07/19 14:00 01/08/19 13:33 Pantoprazole Sodium (Protonix) 40 mg DAILYAC PO 01/08/19 07:30 01/08/19 07:44 Pantoprazole Sodium (Protonix) 40 mg 1X ONCE PO 01/07/19 09:15 01/07/19 09:16 DC 01/07/19 10:33 Enoxaparin Sodium (Lovenox 40mg Syringe) 40 mg Q24H SQ 01/07/19 09:00 Cancel Enoxaparin Sodium (Lovenox 40mg Syringe) 40 mg BID SQ 01/07/19 09:00 01/08/19 09:00 Enoxaparin Sodium (Lovenox 40mg Syringe) 40 mg Q24H SQ 01/07/19 10:00 UNV Albuterol Sulfate (Ventolin Neb Soln) 2.5 mg PRN Q4HRS PRN NEB WHEEZING 01/07/19 11:15 Albuterol Sulfate (Ventolin Neb Soln) 2.5 mg Q4HRS NEB 01/07/19 12:00 01/08/19 11:44 Benzonatate (Tessalon Perle) 100 mg PRN TID PRN PO COUGH 01/07/19 11:18 01/07/19 23:35 Cetirizine HCl (ZyrTEC) 10 mg DAILY PO 01/07/19 12:00 01/08/19 08:59 Budesonide (Pulmicort) 0.5 mg RTBID NEB 01/07/19 12:00 01/08/19 07:33 Simethicone (Gas-X) 80 mg PRN AFTMEALHC PRN PO GAS / BLOATING 01/07/19 11:30 01/07/19 14:23 DC Montelukast Sodium (Singulair) 10 mg QHS PO 01/07/19 21:00 01/07/19 20:58 Simethicone (Gas-X) 80 mg PRN Q3HRS PRN PO GAS / BLOATING 01/07/19 14:30 01/08/19 13:41 Acetaminophen (Tylenol) 650 mg PRN Q6HRS PRN PO PAIN 01/07/19 23:00 01/07/19 23:35 Laboratory Tests Test 01/06/19 23:38 01/07/19 00:05 01/07/19 20:38 01/08/19 07:09 O2 Saturation 98 % (92-99) Arterial Blood pH 7.41 (7.35-7.45) Arterial Blood pCO2 at Patient Temp 35 mmHg (35-46) Arterial Blood pO2 at Patient Temp 106 mmHg (65-108) Arterial Blood HCO3 22 mmol/L (21-28) Arterial Blood Base Excess -2 mmol/L (-3-3) FiO2 30 White Blood Count 7.0 x10^3/uL (4.0-11.0) Red Blood Count 4.54 x10^6/uL (3.50-5.40) Hemoglobin 14.2 g/dL (12.0-15.5) Hematocrit 42.4 % (36.0-47.0) Mean Corpuscular Volume 93 fL (79-100) Mean Corpuscular Hemoglobin 31 pg (25-35) Mean Corpuscular Hemoglobin Concent 33 g/dL (31-37) Red Cell Distribution Width 13.3 % (11.5-14.5) Platelet Count 189 x10^3/uL (140-400) Neutrophils (%) (Auto) 41 % (31-73) Lymphocytes (%) (Auto) 46 % (24-48) Monocytes (%) (Auto) 7 % (0-9) Eosinophils (%) (Auto) 5 % (0-3) Basophils (%) (Auto) 1 % (0-3) Neutrophils # (Auto) 2.9 x10^3uL (1.8-7.7) Lymphocytes # (Auto) 3.3 x10^3/uL (1.0-4.8) Monocytes # (Auto) 0.5 x10^3/uL (0.0-1.1) Eosinophils # (Auto) 0.4 x10^3/uL (0.0-0.7) Basophils # (Auto) 0.1 x10^3/uL (0.0-0.2) Sodium Level 140 mmol/L (136-145) Potassium Level 4.1 mmol/L (3.5-5.1) Chloride Level 106 mmol/L (98-107) Carbon Dioxide Level 24 mmol/L (21-32) Anion Gap 10 (6-14) Blood Urea Nitrogen 16 mg/dL (7-20) Creatinine 0.9 mg/dL (0.6-1.0) Estimated GFR (Cockcroft-Gault) 63.2 BUN/Creatinine Ratio 18 (6-20) Glucose Level 108 mg/dL (70-99) Calcium Level 9.4 mg/dL (8.5-10.1) Total Bilirubin 0.3 mg/dL (0.2-1.0) Aspartate Amino Transf (AST/SGOT) 32 U/L (15-37) Alanine Aminotransferase (ALT/SGPT) 49 U/L (14-59) Alkaline Phosphatase 139 U/L (46-116) Troponin I Quantitative < 0.017 ng/mL (0.000-0.055) MF-Mhq-A-Type Natriuretic Peptide 40 pg/mL (0-124) Total Protein 6.6 g/dL (6.4-8.2) Albumin 3.6 g/dL (3.4-5.0) Albumin/Globulin Ratio 1.2 (1.0-1.7) Glucose (Fingerstick) 206 mg/dL (70-99) 125 mg/dL (70-99) Test 01/08/19 07:25 01/08/19 11:35 White Blood Count 11.1 x10^3/uL (4.0-11.0) Red Blood Count 4.42 x10^6/uL (3.50-5.40) Hemoglobin 13.8 g/dL (12.0-15.5) Hematocrit 42.0 % (36.0-47.0) Mean Corpuscular Volume 95 fL (79-100) Mean Corpuscular Hemoglobin 31 pg (25-35) Mean Corpuscular Hemoglobin Concent 33 g/dL (31-37) Red Cell Distribution Width 13.8 % (11.5-14.5) Platelet Count 185 x10^3/uL (140-400) Neutrophils (%) (Auto) 84 % (31-73) Lymphocytes (%) (Auto) 12 % (24-48) Monocytes (%) (Auto) 4 % (0-9) Eosinophils (%) (Auto) 0 % (0-3) Basophils (%) (Auto) 0 % (0-3) Neutrophils # (Auto) 9.4 x10^3uL (1.8-7.7) Lymphocytes # (Auto) 1.3 x10^3/uL (1.0-4.8) Monocytes # (Auto) 0.5 x10^3/uL (0.0-1.1) Eosinophils # (Auto) 0.0 x10^3/uL (0.0-0.7) Basophils # (Auto) 0.0 x10^3/uL (0.0-0.2) Sodium Level 142 mmol/L (136-145) Potassium Level 4.3 mmol/L (3.5-5.1) Chloride Level 108 mmol/L (98-107) Carbon Dioxide Level 25 mmol/L (21-32) Anion Gap 9 (6-14) Blood Urea Nitrogen 14 mg/dL (7-20) Creatinine 0.8 mg/dL (0.6-1.0) Estimated GFR (Cockcroft-Gault) 72.4 BUN/Creatinine Ratio 18 (6-20) Glucose Level 142 mg/dL (70-99) Calcium Level 9.0 mg/dL (8.5-10.1) Total Bilirubin 0.3 mg/dL (0.2-1.0) Aspartate Amino Transf (AST/SGOT) 15 U/L (15-37) Alanine Aminotransferase (ALT/SGPT) 38 U/L (14-59) Alkaline Phosphatase 109 U/L (46-116) Total Protein 6.7 g/dL (6.4-8.2) Albumin 3.4 g/dL (3.4-5.0) Albumin/Globulin Ratio 1.0 (1.0-1.7) Glucose (Fingerstick) 186 mg/dL (70-99) Laboratory Tests Test 01/07/19 20:38 01/08/19 07:09 01/08/19 07:25 01/08/19 11:35 Glucose (Fingerstick) 206 mg/dL (70-99) 125 mg/dL (70-99) 186 mg/dL (70-99) White Blood Count 11.1 x10^3/uL (4.0-11.0) Red Blood Count 4.42 x10^6/uL (3.50-5.40) Hemoglobin 13.8 g/dL (12.0-15.5) Hematocrit 42.0 % (36.0-47.0) Mean Corpuscular Volume 95 fL (79-100) Mean Corpuscular Hemoglobin 31 pg (25-35) Mean Corpuscular Hemoglobin Concent 33 g/dL (31-37) Red Cell Distribution Width 13.8 % (11.5-14.5) Platelet Count 185 x10^3/uL (140-400) Neutrophils (%) (Auto) 84 % (31-73) Lymphocytes (%) (Auto) 12 % (24-48) Monocytes (%) (Auto) 4 % (0-9) Eosinophils (%) (Auto) 0 % (0-3) Basophils (%) (Auto) 0 % (0-3) Neutrophils # (Auto) 9.4 x10^3uL (1.8-7.7) Lymphocytes # (Auto) 1.3 x10^3/uL (1.0-4.8) Monocytes # (Auto) 0.5 x10^3/uL (0.0-1.1) Eosinophils # (Auto) 0.0 x10^3/uL (0.0-0.7) Basophils # (Auto) 0.0 x10^3/uL (0.0-0.2) Sodium Level 142 mmol/L (136-145) Potassium Level 4.3 mmol/L (3.5-5.1) Chloride Level 108 mmol/L (98-107) Carbon Dioxide Level 25 mmol/L (21-32) Anion Gap 9 (6-14) Blood Urea Nitrogen 14 mg/dL (7-20) Creatinine 0.8 mg/dL (0.6-1.0) Estimated GFR (Cockcroft-Gault) 72.4 BUN/Creatinine Ratio 18 (6-20) Glucose Level 142 mg/dL (70-99) Calcium Level 9.0 mg/dL (8.5-10.1) Total Bilirubin 0.3 mg/dL (0.2-1.0) Aspartate Amino Transf (AST/SGOT) 15 U/L (15-37) Alanine Aminotransferase (ALT/SGPT) 38 U/L (14-59) Alkaline Phosphatase 109 U/L (46-116) Total Protein 6.7 g/dL (6.4-8.2) Albumin 3.4 g/dL (3.4-5.0) Albumin/Globulin Ratio 1.0 (1.0-1.7) Medications Active Scripts Medications Dose Route/Sig Max Daily Dose Days Date Category Dose Instructions Prednisone (Prednisone) 10 Mg Tablet 10 Mg PO UD 01/08/19 Rx Take 5 tablets by mouth daily for 2 days, then take 4 tablets by mouth daily for 2 days, then take 3 tablets by mouth daily for 2 days, then take 2 tablets by mouth daily for 2 days, then take 1 tablets by mouth daily for 2 days, then stop. Zithromax (Azithromycin) 250 Mg Tablet 1 Pkg PO UD 01/08/19 Rx Proair Hfa Inhaler (Albuterol Sulfate) 8.5 Gm Hfa.aer.ad 2 Puff IH PRN Q2HR PRN 01/08/19 Rx Orphenadrine Citrate 100 Mg Tablet.er 1 Tab PO BID PRN 08/02/18 Rx Albuterol Sulfate Neb Soln (Albuterol Sulfate) 2.5 Mg/3 Ml Vial.neb 1 Vial NEB PRN Q4HRS PRN 08/02/18 Rx Medrol (Methylprednisolone) 4 Mg Tab.ds.pk 1 Pkg PO UD 08/02/18 Rx Medrol (Methylprednisolone) 4 Mg Tab.ds.pk 1 Pkg PO UD 02/04/18 Rx [unknown steroid ] PO BID 02/03/18 Reported Gas-X (Simethicone) 125 Mg Capsule 125 Mg PO PRN BFRMEALHC PRN 02/03/18 Reported Loratadine 10 Mg Tablet 1 Tab PO DAILY 02/03/18 Reported Benzonatate 100 Mg Capsule 100 Mg PO TID PRN 02/03/18 Reported [Ventolin] 02/03/18 Reported Dulera 100 Mcg/5 Mcg Inhaler (Mometasone/Formoterol) 13 Gm Hfa.aer.ad 2 Puff IH BID 08/31/15 Reported Albuterol Sulfate Neb Soln (Albuterol Sulfate) 1.25 Mg/3 Ml Vial.neb 1 Vial NEB Q4HRS 02/23/15 Reported Active Scripts Medications Dose Route/Sig Max Daily Dose Days Date Category Dose Instructions Prednisone (Prednisone) 10 Mg Tablet 10 Mg PO UD 01/08/19 Rx Take 5 tablets by mouth daily for 2 days, then take 4 tablets by mouth daily for 2 days, then take 3 tablets by mouth daily for 2 days, then take 2 tablets by mouth daily for 2 days, then take 1 tablets by mouth daily for 2 days, then stop. Zithromax (Azithromycin) 250 Mg Tablet 1 Pkg PO UD 01/08/19 Rx Proair Hfa Inhaler (Albuterol Sulfate) 8.5 Gm Hfa.aer.ad 2 Puff IH PRN Q2HR PRN 01/08/19 Rx Orphenadrine Citrate 100 Mg Tablet.er 1 Tab PO BID PRN 08/02/18 Rx Albuterol Sulfate Neb Soln (Albuterol Sulfate) 2.5 Mg/3 Ml Vial.neb 1 Vial NEB PRN Q4HRS PRN 08/02/18 Rx Medrol (Methylprednisolone) 4 Mg Tab.ds.pk 1 Pkg PO UD 08/02/18 Rx Medrol (Methylprednisolone) 4 Mg Tab.ds.pk 1 Pkg PO UD 02/04/18 Rx [unknown steroid ] PO BID 02/03/18 Reported Gas-X (Simethicone) 125 Mg Capsule 125 Mg PO PRN BFRMEALHC PRN 02/03/18 Reported Loratadine 10 Mg Tablet 1 Tab PO DAILY 02/03/18 Reported Benzonatate 100 Mg Capsule 100 Mg PO TID PRN 02/03/18 Reported [Ventolin] 02/03/18 Reported Dulera 100 Mcg/5 Mcg Inhaler (Mometasone/Formoterol) 13 Gm Hfa.aer.ad 2 Puff IH BID 08/31/15 Reported Albuterol Sulfate Neb Soln (Albuterol Sulfate) 1.25 Mg/3 Ml Vial.neb 1 Vial NEB Q4HRS 02/23/15 Reported Impression . Acute respiratory hypoxic failure Acute exacerbation of asthma. Obstructive sleep apnea-hypopnea syndrome. Obesity. History of Graves' disease. Gastroesophageal reflux disease. Plan . Acute respiratory hypoxic failure * CT on 01/07 : Minimal mediastinal lymphadenopathy is likely reactive and appears significantly improved. No acute findings. * supplemental oxygen titrate to keep sats above 92% * currently on 2 liters N/C * OK TO D/C FOLLOW UP WITH DR GAMBOA * cont. nebs Acute exacerbation of asthma * cont. bronchodilator/Pulmicort/albuterol/Singulair * cont. steroids with taper * supportive care as above Obstructive sleep apnea-hypopnea syndrome. * follow with DR. Gamboa at [facility] * report non-compliance currently * cont. to monitor, recommend CPAP at NOC and with napping Leukocytosis * mild * likely 2/2 steroids * no other signs of infection Obesity. * encourage and promote weight loss History of Graves' disease. * cont. home regimen Gastroesophageal reflux disease. * cont. PPI DVT/GI PPX: Lovenox/Protonix MEAGAN SORTO MD Jan 08, 2019 14:33
--- NOTE | 2019-01-08 15:45 | PDOC ---
PROGRESS NOTES Chief Complaint Chief Complaint 1. ACUTE hypoxic RESPIRATORY FAILURE 2. Exacerbation of severe persistent asthma 3. morbid obesity, BMI 45 4. AYAKA 5. OBESITY, HYPOVENTILATION SYNDROME 6. SEASONAL ALLERGY SYMPTOMS History of Present Illness History of Present Illness feels much better taper steroids 6 min walk, discussed with pulm team nebs qid o2 support iv steroid taper dvt prophylaxis SINGULAIR 10 MG PO Q HS CLARITIN 10MG PO DAILY Vitals Vitals Vital Signs Date Time Temp Pulse Resp B/P (MAP) Pulse Ox O2 Delivery O2 Flow Rate FiO2 01/08/19 14:17 97.9 77 18 120/57 (78) 96 Nasal Cannula 2.0 97.9 Physical Exam General: Cooperative, mild distress Lungs: Clear, Wheezing (ex. in RUL) Abdomen: Normal bowel sounds, Soft Labs LABS Laboratory Tests Test 01/07/19 20:38 01/08/19 07:09 01/08/19 07:25 01/08/19 11:35 Glucose (Fingerstick) 206 mg/dL (70-99) 125 mg/dL (70-99) 186 mg/dL (70-99) White Blood Count 11.1 x10^3/uL (4.0-11.0) Red Blood Count 4.42 x10^6/uL (3.50-5.40) Hemoglobin 13.8 g/dL (12.0-15.5) Hematocrit 42.0 % (36.0-47.0) Mean Corpuscular Volume 95 fL (79-100) Mean Corpuscular Hemoglobin 31 pg (25-35) Mean Corpuscular Hemoglobin Concent 33 g/dL (31-37) Red Cell Distribution Width 13.8 % (11.5-14.5) Platelet Count 185 x10^3/uL (140-400) Neutrophils (%) (Auto) 84 % (31-73) Lymphocytes (%) (Auto) 12 % (24-48) Monocytes (%) (Auto) 4 % (0-9) Eosinophils (%) (Auto) 0 % (0-3) Basophils (%) (Auto) 0 % (0-3) Neutrophils # (Auto) 9.4 x10^3uL (1.8-7.7) Lymphocytes # (Auto) 1.3 x10^3/uL (1.0-4.8) Monocytes # (Auto) 0.5 x10^3/uL (0.0-1.1) Eosinophils # (Auto) 0.0 x10^3/uL (0.0-0.7) Basophils # (Auto) 0.0 x10^3/uL (0.0-0.2) Sodium Level 142 mmol/L (136-145) Potassium Level 4.3 mmol/L (3.5-5.1) Chloride Level 108 mmol/L (98-107) Carbon Dioxide Level 25 mmol/L (21-32) Anion Gap 9 (6-14) Blood Urea Nitrogen 14 mg/dL (7-20) Creatinine 0.8 mg/dL (0.6-1.0) Estimated GFR (Cockcroft-Gault) 72.4 BUN/Creatinine Ratio 18 (6-20) Glucose Level 142 mg/dL (70-99) Calcium Level 9.0 mg/dL (8.5-10.1) Total Bilirubin 0.3 mg/dL (0.2-1.0) Aspartate Amino Transf (AST/SGOT) 15 U/L (15-37) Alanine Aminotransferase (ALT/SGPT) 38 U/L (14-59) Alkaline Phosphatase 109 U/L (46-116) Total Protein 6.7 g/dL (6.4-8.2) Albumin 3.4 g/dL (3.4-5.0) Albumin/Globulin Ratio 1.0 (1.0-1.7) Assessment and Plan Assessmemt and Plan Problems Medical Problems: (1) Asthma exacerbation Status: Acute Comment Review of Relevant I have reviewed the following items ines (where applicable) has been applied. Labs Laboratory Tests Test 01/06/19 23:38 01/07/19 00:05 01/07/19 20:38 01/08/19 07:09 O2 Saturation 98 % (92-99) Arterial Blood pH 7.41 (7.35-7.45) Arterial Blood pCO2 at Patient Temp 35 mmHg (35-46) Arterial Blood pO2 at Patient Temp 106 mmHg (65-108) Arterial Blood HCO3 22 mmol/L (21-28) Arterial Blood Base Excess -2 mmol/L (-3-3) FiO2 30 White Blood Count 7.0 x10^3/uL (4.0-11.0) Red Blood Count 4.54 x10^6/uL (3.50-5.40) Hemoglobin 14.2 g/dL (12.0-15.5) Hematocrit 42.4 % (36.0-47.0) Mean Corpuscular Volume 93 fL (79-100) Mean Corpuscular Hemoglobin 31 pg (25-35) Mean Corpuscular Hemoglobin Concent 33 g/dL (31-37) Red Cell Distribution Width 13.3 % (11.5-14.5) Platelet Count 189 x10^3/uL (140-400) Neutrophils (%) (Auto) 41 % (31-73) Lymphocytes (%) (Auto) 46 % (24-48) Monocytes (%) (Auto) 7 % (0-9) Eosinophils (%) (Auto) 5 % (0-3) Basophils (%) (Auto) 1 % (0-3) Neutrophils # (Auto) 2.9 x10^3uL (1.8-7.7) Lymphocytes # (Auto) 3.3 x10^3/uL (1.0-4.8) Monocytes # (Auto) 0.5 x10^3/uL (0.0-1.1) Eosinophils # (Auto) 0.4 x10^3/uL (0.0-0.7) Basophils # (Auto) 0.1 x10^3/uL (0.0-0.2) Sodium Level 140 mmol/L (136-145) Potassium Level 4.1 mmol/L (3.5-5.1) Chloride Level 106 mmol/L (98-107) Carbon Dioxide Level 24 mmol/L (21-32) Anion Gap 10 (6-14) Blood Urea Nitrogen 16 mg/dL (7-20) Creatinine 0.9 mg/dL (0.6-1.0) Estimated GFR (Cockcroft-Gault) 63.2 BUN/Creatinine Ratio 18 (6-20) Glucose Level 108 mg/dL (70-99) Calcium Level 9.4 mg/dL (8.5-10.1) Total Bilirubin 0.3 mg/dL (0.2-1.0) Aspartate Amino Transf (AST/SGOT) 32 U/L (15-37) Alanine Aminotransferase (ALT/SGPT) 49 U/L (14-59) Alkaline Phosphatase 139 U/L (46-116) Troponin I Quantitative < 0.017 ng/mL (0.000-0.055) CX-Atr-Z-Type Natriuretic Peptide 40 pg/mL (0-124) Total Protein 6.6 g/dL (6.4-8.2) Albumin 3.6 g/dL (3.4-5.0) Albumin/Globulin Ratio 1.2 (1.0-1.7) Glucose (Fingerstick) 206 mg/dL (70-99) 125 mg/dL (70-99) Test 01/08/19 07:25 01/08/19 11:35 White Blood Count 11.1 x10^3/uL (4.0-11.0) Red Blood Count 4.42 x10^6/uL (3.50-5.40) Hemoglobin 13.8 g/dL (12.0-15.5) Hematocrit 42.0 % (36.0-47.0) Mean Corpuscular Volume 95 fL (79-100) Mean Corpuscular Hemoglobin 31 pg (25-35) Mean Corpuscular Hemoglobin Concent 33 g/dL (31-37) Red Cell Distribution Width 13.8 % (11.5-14.5) Platelet Count 185 x10^3/uL (140-400) Neutrophils (%) (Auto) 84 % (31-73) Lymphocytes (%) (Auto) 12 % (24-48) Monocytes (%) (Auto) 4 % (0-9) Eosinophils (%) (Auto) 0 % (0-3) Basophils (%) (Auto) 0 % (0-3) Neutrophils # (Auto) 9.4 x10^3uL (1.8-7.7) Lymphocytes # (Auto) 1.3 x10^3/uL (1.0-4.8) Monocytes # (Auto) 0.5 x10^3/uL (0.0-1.1) Eosinophils # (Auto) 0.0 x10^3/uL (0.0-0.7) Basophils # (Auto) 0.0 x10^3/uL (0.0-0.2) Sodium Level 142 mmol/L (136-145) Potassium Level 4.3 mmol/L (3.5-5.1) Chloride Level 108 mmol/L (98-107) Carbon Dioxide Level 25 mmol/L (21-32) Anion Gap 9 (6-14) Blood Urea Nitrogen 14 mg/dL (7-20) Creatinine 0.8 mg/dL (0.6-1.0) Estimated GFR (Cockcroft-Gault) 72.4 BUN/Creatinine Ratio 18 (6-20) Glucose Level 142 mg/dL (70-99) Calcium Level 9.0 mg/dL (8.5-10.1) Total Bilirubin 0.3 mg/dL (0.2-1.0) Aspartate Amino Transf (AST/SGOT) 15 U/L (15-37) Alanine Aminotransferase (ALT/SGPT) 38 U/L (14-59) Alkaline Phosphatase 109 U/L (46-116) Total Protein 6.7 g/dL (6.4-8.2) Albumin 3.4 g/dL (3.4-5.0) Albumin/Globulin Ratio 1.0 (1.0-1.7) Glucose (Fingerstick) 186 mg/dL (70-99) Laboratory Tests Test 01/07/19 20:38 01/08/19 07:09 01/08/19 07:25 01/08/19 11:35 Glucose (Fingerstick) 206 mg/dL (70-99) 125 mg/dL (70-99) 186 mg/dL (70-99) White Blood Count 11.1 x10^3/uL (4.0-11.0) Red Blood Count 4.42 x10^6/uL (3.50-5.40) Hemoglobin 13.8 g/dL (12.0-15.5) Hematocrit 42.0 % (36.0-47.0) Mean Corpuscular Volume 95 fL (79-100) Mean Corpuscular Hemoglobin 31 pg (25-35) Mean Corpuscular Hemoglobin Concent 33 g/dL (31-37) Red Cell Distribution Width 13.8 % (11.5-14.5) Platelet Count 185 x10^3/uL (140-400) Neutrophils (%) (Auto) 84 % (31-73) Lymphocytes (%) (Auto) 12 % (24-48) Monocytes (%) (Auto) 4 % (0-9) Eosinophils (%) (Auto) 0 % (0-3) Basophils (%) (Auto) 0 % (0-3) Neutrophils # (Auto) 9.4 x10^3uL (1.8-7.7) Lymphocytes # (Auto) 1.3 x10^3/uL (1.0-4.8) Monocytes # (Auto) 0.5 x10^3/uL (0.0-1.1) Eosinophils # (Auto) 0.0 x10^3/uL (0.0-0.7) Basophils # (Auto) 0.0 x10^3/uL (0.0-0.2) Sodium Level 142 mmol/L (136-145) Potassium Level 4.3 mmol/L (3.5-5.1) Chloride Level 108 mmol/L (98-107) Carbon Dioxide Level 25 mmol/L (21-32) Anion Gap 9 (6-14) Blood Urea Nitrogen 14 mg/dL (7-20) Creatinine 0.8 mg/dL (0.6-1.0) Estimated GFR (Cockcroft-Gault) 72.4 BUN/Creatinine Ratio 18 (6-20) Glucose Level 142 mg/dL (70-99) Calcium Level 9.0 mg/dL (8.5-10.1) Total Bilirubin 0.3 mg/dL (0.2-1.0) Aspartate Amino Transf (AST/SGOT) 15 U/L (15-37) Alanine Aminotransferase (ALT/SGPT) 38 U/L (14-59) Alkaline Phosphatase 109 U/L (46-116) Total Protein 6.7 g/dL (6.4-8.2) Albumin 3.4 g/dL (3.4-5.0) Albumin/Globulin Ratio 1.0 (1.0-1.7) Microbiology 01/06/19 Blood Culture - Preliminary, Resulted NO GROWTH AFTER 1 DAY Medications Current Medications Albuterol/ Ipratropium (Duoneb) 3 ml 1X ONCE NEB Last administered on 01/06/19at 23:52; Start 01/06/19 at 23:45; Stop 01/06/19 at 23:46; Status DC Methylprednisolone Sodium Succinate (SOLU-Medrol 125MG VIAL) 125 mg 1X ONCE IV Last administered on 01/07/19at 00:21; Start 01/06/19 at 23:45; Stop 01/06/19 at 23:46; Status DC Albuterol Sulfate (Ventolin Neb Soln) 10 mg 1X ONCE CONT NEB Last administered on 01/07/19at 00:12; Start 01/07/19 at 00:15; Stop 01/07/19 at 00:16; Status DC Ondansetron HCl (Zofran) 4 mg PRN Q8HRS PRN IV NAUSEA/VOMITING; Start 01/07/19 at 00:30; Stop 01/08/19 at 00:29; Status DC Albuterol/ Ipratropium (Duoneb) 3 ml RTQID NEB Last administered on 01/07/19at 06:29; Start 01/07/19 at 08:00; Stop 01/07/19 at 11:20; Status DC Methylprednisolone Sodium Succinate (SOLU-Medrol 125MG VIAL) 62.5 mg Q6HRS IV Last administered on 01/07/19at 06:06; Start 01/07/19 at 06:00; Stop 01/07/19 at 08:58; Status DC Albuterol Sulfate (Ventolin Neb Soln) 2.5 mg PRN Q4HRS PRN NEB SOA; Start 01/07/19 at 00:30; Stop 01/07/19 at 11:18; Status DC Methylprednisolone Sodium Succinate (SOLU-Medrol 40MG VIAL) 40 mg Q8HRS IV Last administered on 01/08/19at 13:33; Start 01/07/19 at 14:00; Stop 01/08/19 at 22:00 Pantoprazole Sodium (Protonix) 40 mg DAILYAC PO Last administered on 01/08/19at 07:44; Start 01/08/19 at 07:30 Pantoprazole Sodium (Protonix) 40 mg 1X ONCE PO Last administered on 01/07/19at 10:33; Start 01/07/19 at 09:15; Stop 01/07/19 at 09:16; Status DC Enoxaparin Sodium (Lovenox 40mg Syringe) 40 mg Q24H SQ ; Start 01/07/19 at 09:00; Status Cancel Enoxaparin Sodium (Lovenox 40mg Syringe) 40 mg BID SQ Last administered on 01/08/19at 09:00; Start 01/07/19 at 09:00 Enoxaparin Sodium (Lovenox 40mg Syringe) 40 mg Q24H SQ ; Start 01/07/19 at 10:00; Status UNV Albuterol Sulfate (Ventolin Neb Soln) 2.5 mg PRN Q4HRS PRN NEB WHEEZING; Start 01/07/19 at 11:15 Albuterol Sulfate (Ventolin Neb Soln) 2.5 mg Q4HRS NEB Last administered on 01/08/19at 11:44; Start 01/07/19 at 12:00 Benzonatate (Tessalon Perle) 100 mg PRN TID PRN PO COUGH Last administered on 01/07/19at 23:35; Start 01/07/19 at 11:18 Cetirizine HCl (ZyrTEC) 10 mg DAILY PO Last administered on 01/08/19 08:59; S tart 01/07/19 at 12:00 Budesonide (Pulmicort) 0.5 mg RTBID NEB Last administered on 01/08/19at 07:33; Start 01/07/19 at 12:00 Simethicone (Gas-X) 80 mg PRN AFTMEALHC PRN PO GAS / BLOATING; Start 01/07/19 at 11:30; Stop 01/07/19 at 14:23; Status DC Montelukast Sodium (Singulair) 10 mg QHS PO Last administered on 01/07/19at 20:58; Start 01/07/19 at 21:00 Simethicone (Gas-X) 80 mg PRN Q3HRS PRN PO GAS / BLOATING Last administered on 01/08/19at 13:41; Start 01/07/19 at 14:30 Acetaminophen (Tylenol) 650 mg PRN Q6HRS PRN PO PAIN Last administered on 01/07/19at 23:35; Start 01/07/19 at 23:00 Methylprednisolone Sodium Succinate (SOLU-Medrol 40MG VIAL) 30 mg Q8HRS IV ; Start 01/09/19 at 06:00 Active Scripts Active Prednisone (Prednisone) 10 Mg Tablet 10 Mg PO UD Take 5 tablets by mouth daily for 2 days, then take 4 tablets by mouth daily for 2 days, then take 3 tablets by mouth daily for 2 days, then take 2 tablets by mouth daily for 2 days, then take 1 tablets by mouth daily for 2 days, then stop. Zithromax (Azithromycin) 250 Mg Tablet 1 Pkg PO UD Proair Hfa Inhaler (Albuterol Sulfate) 8.5 Gm Hfa.aer.ad 2 Puff IH PRN Q2HR PRN Orphenadrine Citrate 100 Mg Tablet.er 1 Tab PO BID PRN Albuterol Sulfate Neb Soln (Albuterol Sulfate) 2.5 Mg/3 Ml Vial.neb 1 Vial NEB PRN Q4HRS PRN Medrol (Methylprednisolone) 4 Mg Tab.ds.pk 1 Pkg PO UD Medrol (Methylprednisolone) 4 Mg Tab.ds.pk 1 Pkg PO UD Reported [unknown steroid ] PO BID Gas-X (Simethicone) 125 Mg Capsule 125 Mg PO PRN BFRMEALHC PRN Loratadine 10 Mg Tablet 1 Tab PO DAILY Benzonatate 100 Mg Capsule 100 Mg PO TID PRN [Ventolin] Dulera 100 Mcg/5 Mcg Inhaler (Mometasone/Formoterol) 13 Gm Hfa.aer.ad 2 Puff IH BID Albuterol Sulfate Neb Soln (Albuterol Sulfate) 1.25 Mg/3 Ml Vial.neb 1 Vial NEB Q4HRS Vitals/I & O Vital Sign - Last 24 Hours 01/07/19 01/07/19 01/07/19 01/07/19 16:12 19:40 20:00 20:18 Temp 98.4 98.4 Pulse 106 Resp 20 B/P (MAP) 134/63 (86) Pulse Ox 98 97 O2 Delivery Nasal Cannula Room Air Nasal Cannula Nasal Cannula O2 Flow Rate 2.5 2.0 2.0 01/07/19 01/07/19 01/08/19 01/08/19 20:22 23:08 03:59 06:55 Temp 98.6 98.0 98.1 98.6 98.0 98.1 Pulse 99 89 72 Resp 18 18 17 B/P (MAP) 130/53 (78) 104/41 (62) 110/54 (72) Pulse Ox 96 95 97 O2 Delivery Nasal Cannula Nasal Cannula Nasal Cannula Room Air O2 Flow Rate 2.0 2.0 2.0 01/08/19 01/08/19 01/08/19 01/08/19 07:35 07:45 10:34 11:44 Temp 97.6 97.6 Pulse 79 Resp 18 B/P (MAP) 100/48 (65) Pulse Ox 98 93 96 O2 Delivery Nasal Cannula Nasal Cannula Room Air Room Air O2 Flow Rate 2.0 2.0 01/08/19 14:17 Temp 97.9 97.9 Pulse 77 Resp 18 B/P (MAP) 120/57 (78) Pulse Ox 96 O2 Delivery Nasal Cannula O2 Flow Rate 2.0 Intake and Output 01/07/19 01/07/19 01/08/19 15:00 23:00 07:00 Intake Total 660 ml Output Total 550 ml Balance 110 ml TERENCE CROWELL MD Jan 08, 2019 15:45
--- NOTE | 2019-01-08 16:38 | NUR ---
Per Dr. Max - I requested that patient walk to end of garcia with me to determine if she was going to need oxygen at home upon discharge. Patient stated that she was too weak to walk down garcia. I asked her if she felt like she should stay another night, and she refused stating that she wants to go home and that she has been through this before and will not need oxygen at home. Patient was currently on room air at bedside when this conversation with patient occurred. Will plan on discharging patient with recommendations to follow up with primary care for further needs.
--- NOTE | 2019-01-08 17:48 | NUR ---
Discharge Note: JÚNIOR PAGE J6 [facility] Discharge instructions and discharge home medications reviewed with Patient and a copy given. All questions have been answered and understanding verbalized. The following instructions and handouts were given: discharge instructions, new prescriptions, education and follow up recommendations. Discontinued lines and drains: Peripheral IV discontinued intact. Patient discharged to Home or Self Care with Self via Wheelchair off unit by [employer] to personal vehicle.
[2019-01-08] MEDS ORDERED: methylPREDNISolone SOD SUCC PF 40 MG/ML VIAL. IV SCH (21:00)
[2019-01-09] MEDS ORDERED: methylPREDNISolone SOD SUCC PF 40 MG/ML VIAL. IV SCH (06:00)
--- NOTE | 2019-01-09 10:15 | EKG ---
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
== END 2019-01-08 17:53 | disposition home or self-care (01) | DRG 189 ==
LOC: ER 23:22 → 6 SOUTH 01-07 00:30
PROVIDERS: ADMIT Internal Medicine; ATTEND Internal Medicine
DX: J96.01 Acute respiratory failure with hypoxia (principal); J45.51 Severe persistent asthma with (acute) exacerbation; E66.2 Morbid (severe) obesity with alveolar hypoventilation; Z68.42 Body mass index [BMI] 45.0-49.9, adult; J44.9 Chronic obstructive pulmonary disease, unspecified; I25.10 Atherosclerotic heart disease of native coronary artery without angina pectoris; I50.9 Heart failure, unspecified; M19.90 Unspecified osteoarthritis, unspecified site; K21.9 Gastro-esophageal reflux disease without esophagitis; Z88.5 Allergy status to narcotic agent; Z88.8 Allergy status to other drugs, medicaments and biological substances; Z92.3 Personal history of irradiation; Z91.19 Patient's noncompliance with other medical treatment and regimen; Z82.5 Family history of asthma and other chronic lower respiratory diseases
CPT/HCPCS: 36415; 36600; 71045; 71250; 80053; 82805; 82962; 83880; 84484; 85025; 87040; 93005; 94640; 94644; 96374; J1650; J2920; J2930; J7613; J7620; J7626; 99285-25